=== PATIENT | female | born 2000 | race Caucasian/White ===

== ENCOUNTER 2021-01-20 13:28 | Emergency (ER) | payer OTHER, SELFPAY ==
--- NOTE | 2021-01-20 13:43 | ED.URI ---
HPI - URI/Sore Throat General Chief Complaint: Upper Respiratory Infection Stated Complaint: Sore Throat,Fever,Body Aches Time Seen by Provider: 01/20/21 13:43 Source: patient and RN notes reviewed History of Present Illness HPI Narrative: Patient is a 20-year-old female who presents the urgent care with complaints of sore throat, fatigue, fever and body aches. Patient's fatigue started yesterday and she woke up with a sore throat, body aches and fever this morning. Patient states that she was in [place] for the weekend but denies of any known exposures to Covid, flu or strep. Patient has had a Covid vaccine. Patient has taken Tylenol for her symptoms this morning. No other acute complaints. No acute distress noted. Patient aware of the plan of care. Some parts of this dictation were generated by voice recognition software and may contain typographical and/or grammatical inaccuracies. Related Data Home Medications Medication Instructions Recorded Confirmed sertraline [Zoloft] 25 mg PO DAILY 01/20/21 01/20/21 Allergies Allergy/AdvReac Type Severity Reaction Status Date / Time Penicillins Allergy Mild Hives Verified 01/20/21 13:53 Review of Systems Review of Systems: CONSTITUTIONAL: Reports of fever, chills, fatigue EYES: Denies visual changes, redness, or discharge. ENT: Denies rhinorrhea, congestion, otalgia. Reports of sore throat and fever blisters to upper and lower lips CARDIOVASCULAR: Denies chest pain, palpitations, or edema. RESPIRATORY: Denies cough or dyspnea. GASTROINTESTINAL: Denies abdominal pain, nausea, vomiting, or diarrhea. GENITOURINARY: Denies dysuria or hematuria. SKIN: Denies rash or itching. MUSCULOSKELETAL: Denies back pain, joint pain. Reports body aches NEUROLOGIC: Denies headache, numbness, or weakness. All other systems reviewed are negative, except as documented in HPI. PMFSH Comments At the time of my signature, I reviewed and agree with the nursing past medical, surgical, social, and family history. There is no relevant family history pertinent to the patient complaint. Exam Narrative: GENERAL: This is a well-nourished, well-developed patient. Appears fatigued HEAD: normocephalic, atraumatic. EYES: PERRL. Sclera clear/white. Vision is grossly intact. EARS: External ears normal, auditory canals clear and without drainage, TMs normal without perforation. Hearing grossly intact. NOSE: External nose normal with no obvious nasal discharge, nares without redness, no rhinorrhea. THROAT: Mucous membranes moist. Mild erythema noted to posterior oropharynx with moderate postnasal drainage. 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 RESPIRATORY: Clear to auscultation. Breath sounds equal bilaterally. No wheezes, rales, or rhonchi. SKIN: warm, intact with no suspicious lesions or rash, good texture and turgor. NEURO: awake, alert, and oriented to person, place and time. There were no obvious focal neurologic abnormalities. EXTREMITIES: No clubbing, cyanosis, or edema. Course Vital Signs Vital signs: Vital Signs Temperature 100.2 F H 01/20/21 13:44 Pulse Rate 107 H 01/20/21 13:44 Respiratory Rate 18 01/20/21 13:44 Blood Pressure 126/86 01/20/21 13:44 Pulse Oximetry 100 01/20/21 13:44 Temperature 100.2 F H 01/20/21 13:44 Pulse Rate 107 H 01/20/21 13:44 Respiratory Rate 18 01/20/21 13:44 Blood Pressure 126/86 01/20/21 13:44 Pulse Oximetry 100 01/20/21 13:44 Reviewed MDM - URI/Sore Throat MDM Narrative Medical decision making narrative: Reviewed lab results with the patient. She is aware that flu swab was negative. Strep swab was also negative. Educated patient on strep culture and we will call within 72 hours if culture is positive and antibiotics are necessary. [facility]
[2021-01-20 13:44] VITALS: BP 126/86; PULSE 107; RESP 18; TEMP 37.9; O2SAT 100
[2021-01-22 02:32] LABS: SARS-CoV-2 RNA PCR Negative
== END 2021-01-20 14:04 | disposition home or self-care (01) ==
PROVIDERS: Emergency Provider Nurse Practitioner Family
DX: J06.9 Acute upper respiratory infection, unspecified (principal); J02.9 Acute pharyngitis, unspecified; Z20.822 Contact with and (suspected) exposure to COVID-19; F41.9 Anxiety disorder, unspecified; F32.9 Major depressive disorder, single episode, unspecified
CPT/HCPCS: 87081; 87804; 87880; 99203; C9803; G0463; U0003; U0005